=== PATIENT | male | born 1995 | race Caucasian/White ===

== ENCOUNTER 2020-11-06 17:19 | Emergency (ER) | payer OTHER ==
[~2020-11-06] VITALS: Ht 165.1 cm; Wt 73.4 kg
[~2020-11-06 17:19] MED LIST: ALBU8.5H8 IH; LEVO500T2 PO
[2020-11-06 17:53] VITALS: BP 95/57
[2020-11-06] MEDS ORDERED: CYCL-1 PO (18:19)
[2020-11-06] MEDS ORDERED: ketorolac trometh. 30mg/ml inj. IM ONE (18:20)
[2020-11-06] MEDS ORDERED: ketorolac tromethamine 15mg/ml inj. IM ONE (18:20)
== END 2020-11-06 18:37 | disposition home or self-care (01) ==
LOC: ER 17:19
DX: S29.012A Strain of muscle and tendon of back wall of thorax, initial encounter (principal); G89.29 Other chronic pain; F12.90 Cannabis use, unspecified, uncomplicated; Z88.0 Allergy status to penicillin; Z79.899 Other long term (current) drug therapy; W18.39XA Other fall on same level, initial encounter; Y93.89 Activity, other specified; Y92.89 Other specified places as the place of occurrence of the external cause; Y99.8 Other external cause status
CPT/HCPCS: 96372; 99283; J1885; 99284

== ENCOUNTER 2021-01-17 22:43 | Emergency (ER) | payer OTHER ==
[~2021-01-17] VITALS: Ht 165.1 cm; Wt 68.2 kg
[~2021-01-17 22:43] MED LIST changes: +CYCL-1 PO
[2021-01-17 22:57] VITALS: BP 118/66
[2021-01-18] MEDS ORDERED: acetaminophen 325mg tablet PO ONE (00:15)
[2021-01-18] MEDS ORDERED: morphine 4 MG/ML inj SYRINge IM ONE (00:15)
[2021-01-18] MEDS ORDERED: LORazepam 2 mg/ml vial IM ONE (00:15)
[2021-01-18] MEDS ORDERED: ondansetron 4mg rapidly disintigrating tab PO ONE (00:15)
[2021-01-18] MEDS ORDERED: ketorolac trometh inj. 60 MG/2 ML VIAL IM ONE (00:15)
== END 2021-01-18 01:08 | disposition home or self-care (01) ==
LOC: ER 22:45
DX: H92.03 Otalgia, bilateral (principal); G89.29 Other chronic pain; F12.90 Cannabis use, unspecified, uncomplicated; Z88.0 Allergy status to penicillin; Z79.2 Long term (current) use of antibiotics; Z79.899 Other long term (current) drug therapy
CPT/HCPCS: 96372; 99284; J1885; J2060; J2270